=== PATIENT | male | born 1960 | race Caucasian/White ===

== ENCOUNTER → 2020-12-20 19:12 | Outpatient (CLI) | payer BC, SELFPAY ==
[2020-12-20 19:25] LABS: Basophils # 0.1 K/mm3 (0-0.2); Basophils % 1.1 % (0.1-2.0); Eosinophils # 0.4 K/mm3 (0.0-0.4); Hematocrit 49.3 % (42.0-52.0); Hemoglobin 16.1 g/dL (14.1-18.0); Mean Corpuscular HGB Conc 32.6 g/dL (31.8-35.4); Mean Corpuscular Hemoglobin 28.5 pg (27.0-31.2); Mean Corpuscular Volume 87.3 fl (80-94); Mean Platelet Volume 8.9 fl (7.4-10.4); Monocytes # 0.7 K/mm3 (0.1-1.0); Monocytes % 6.8 % (1.7-9.3); Platelet Count 373 K/mm3 (142-424); Red Blood Count 5.65 M/mm3 (4.60-6.20); Red Cell Distribution Width 14.1 % (11.5-17.5); White Blood Count 10.2 K/mm3 (4.8-10.8)
[2020-12-20 19:53] LABS: Alanine Aminotransferase 18 U/L (12-78); Albumin Level 4.6 g/dl (3.5-5.0); Albumin/Globulin Ratio 1.7 (1.1-1.8); Alkaline Phosphatase 66 U/L (38-126); Anion Gap 13.6 mEq/L (5-15); Aspartate Amino Transferase 22 U/L (17-59); Bilirubin,Total 0.6 mg/dl (0.2-1.3); Blood Urea Nitrogen 16 mg/dl (9-20); Carbon Dioxide 24 mmol/L (22.0-30.0); Chloride 108 mmol/L (98-107); Chol/HDL Ratio 6.8 (1-3.5); Cholesterol 217 mg/dl (140-200); Estimated Glomerular Filt Rate 87 ml/min (>60); GFR (African American) 105 ML/MIN (>60); Globulin 2.7 g/dL (1.3-3.2); Glucose 108 mg/dl (74-100); HDL Cholesterol 32 mg/dl (40-60); Potassium 4.6 mmoL/L (3.5-5.1); Sodium 141 mmol/L (136-145); Total Protein,Serum 7.3 g/dl (6.3-8.2); Triglycerides 185 mg/dl (30-150); VLDL Cholesterol 37 mg/dL (0-40)
[2020-12-20 20:04] LABS: Direct LDL Cholesterol 139.01 mg/dL (100-129)
== END ==
PROVIDERS: Visit Provider Internal Medicine Adolescent Medicine
DX: J44.9 Chronic obstructive pulmonary disease, unspecified (principal); E78.5 Hyperlipidemia, unspecified; K21.9 Gastro-esophageal reflux disease without esophagitis
CPT/HCPCS: 80053; 80061; 85025

== ENCOUNTER → 2020-12-21 08:47 | Outpatient (CLI) | payer BC, MEDICARE, SELFPAY ==
[2020-12-21 09:58] LABS: Coronavirus 19 IgG Antibody Positive (Negative); Coronavirus 19 IgM Antibody Negative (Negative)
== END ==
PROVIDERS: Visit Provider Internal Medicine Gastroenterology
DX: Z01.812 Encounter for preprocedural laboratory examination (principal); Z20.822 Contact with and (suspected) exposure to COVID-19; Z12.11 Encounter for screening for malignant neoplasm of colon
CPT/HCPCS: 36415; 86328

== ENCOUNTER 2020-12-23 07:38 | Day surgery (SDC) | payer BC, MEDICARE, SELFPAY ==
[2020-12-20 12:49] VITALS: BMI 30.7
[2020-12-23 08:32] VITALS: BP 133/82; PULSE 80; RESP 18; TEMP 36.3; O2SAT 100
[2020-12-23 08:55] VITALS: O2SAT 98
--- NOTE | 2020-12-23 08:58 | P.PN_ITS ---
[facility] Anesthesia Checklist - Structural Data Admitted From: Home Planned Operative Procedure/s: colonoscopy Consent for Planned Operative Procedure(s) Verified: Yes - Airway Assessment C-Spine Mobility Assessed: Yes TMJ Mobility Assessed: Yes Dentition: Good Dentition - Neurological Assessment Level of Consciousness: Awake, Alert, Appropriate - Anesthesia Plan Anesthesia Risk discussed: Yes Anesthesia Plan: Verified ASA Class: III Anesthesia Type: MAC [facility] History I have reviewed the patient's past medical history: Yes Medical History: Reports:: Cancer (kidney, skin) Denies:: Diabetes Mellitus Type 1, Diabetes Mellitus Type 2, Internal Pacemaker, MRSA, Seizures *Have you ever received a pneumonia vaccine?: Yes *Have you received a flu vaccine this season?: Yes Anesthesia experience/problems:: none Laterality Cases: Right: Carpal Tunnel Release Other Surgeries: No: Pacemaker Amputation: No Fractures: No - *Social History Last grade of school completed: High school graduate Smoking Status: Never smoker Alcohol Intake: never Substance Use Type: denies use *Occupational Status:: disabled Housing: house Household Members: spouse *Travel in the last 8 weeks: None Family Hx:: Cancer, Diabetes
[2020-12-23 09:30] VITALS: BP 98/59; PULSE 58; RESP 18; TEMP 36.4; O2SAT 95
--- NOTE | 2020-12-23 09:30 | HMH.PROC ---
[facility] Procedure Note Procedure Note:: Colonoscopy Procedure Report: Colonoscopy with cold snare polypectomy Endoscopist: Sandeep Laughlin II, MD Referring physician: Cristi Andersen M.D. Date of Procedure: December 23, 2020 Equipment: Olympus 190 variable stiffness pediatric colonoscope Sedation: MAC sedation Indication: Mr. Mack is a 60-year-old gentleman who is here for screening colonoscopy. His son had colon cancer recently at the age of 35. The patient reports no abdominal pain, weight loss, change in his bowel habits or rectal bleeding. Procedure: Prior to the procedure, a history and physical exam was performed, and patient's medications and allergies were reviewed. The risks, benefits and alternatives of the sedation and procedure were discussed with the patient. All questions were answered and informed consent was obtained. The patient was brought to the procedure room. Patient identification and proposed procedure were verified by the physician and the nurse. The patient was placed in a left lateral decubitus position and the scope was passed under direct vision. Throughout the procedure, the patient's blood pressure, pulse, and oxygen saturations were monitored continuously. The colonoscopy was accomplished without difficulty. The patient tolerated the procedure well. Findings: On digital rectal examination there was normal rectal tone. There were no external hemorrhoids. There was a prostate nodule in the right upper margin of the prostate and there was firmness in the left upper margin with asymmetry. The colonoscope was introduced through the anal canal to the rectum and advanced to the cecum. The ileocecal valve and appendiceal orifice were identified. The scope was advanced a short distance into the ileum which appeared grossly normal. The scope was then withdrawn into the colon. There were a total of 10 colon polyps (cecum/ascending x5 (3, 4, 5, 7 and 10 mm), transverse x3 (4, 4 and 8 mm) and ascending x2 (5 and 6 mm)) which were all removed via cold snare polypectomy. The cecum, ascending and transverse colon and mucosa were grossly normal. There were scattered diverticuli throughout the descending and sigmoid colon (LEFT colon). The rectum itself was normal. Upon retroflexion within the rectum there were grade 1-2 internal hemorrhoids. The preparation was fair to good throughout with Huntington Preparation Score of 7 out of 9. The cecal time was 17 minutes. Impression: 1. Colonic polyps x10 2. Left-sided diverticulosis 3. Grade 1-2 internal hemorrhoids 4. Prostate nodule/prostate asymmetry Plan: I will follow up the polyp pathology and recommend repeat colonoscopy again in 1-2 years based upon the polyp size, number and histology. I would also recommend this based upon bowel preparation and family history. Additionally, I will do PSA testing today and make referral to urology I would encourage fiber supplementation on a long-term daily maintenance basis.
[2020-12-23 09:40] VITALS: BP 103/72; PULSE 61; RESP 18; TEMP 36.6; O2SAT 96
[2020-12-23 09:50] VITALS: BP 131/97; PULSE 61; RESP 18; O2SAT 96
[2020-12-23 10:00] VITALS: BP 131/94; PULSE 68; RESP 18; TEMP 36.1; O2SAT 97
[2020-12-23 10:42] LABS: Prostate Specific Ag, Diagnost 0.973 ng/ml (0.0-4.0)
== END 2020-12-23 10:00 | disposition home or self-care (01) ==
LOC: OUTP 07:41
PROVIDERS: PCP Internal Medicine Adolescent Medicine; Visit Provider Internal Medicine Gastroenterology
PROC: 0DJD8ZZ Inspection of Lower Intestinal Tract, Via Natural or Artificial Opening Endoscopic (ICD-10-PCS; CPT 45378; principal; 2020-12-23 09:00)
DX: Z12.11 Encounter for screening for malignant neoplasm of colon (principal); K63.5 Polyp of colon; K57.30 Diverticulosis of large intestine without perforation or abscess without bleeding; K64.0 First degree hemorrhoids; N40.2 Nodular prostate without lower urinary tract symptoms; Z85.828 Personal history of other malignant neoplasm of skin; Z85.528 Personal history of other malignant neoplasm of kidney; Z83.3 Family history of diabetes mellitus
CPT/HCPCS: 45385; 36415; 84153

== ENCOUNTER → 2021-07-24 14:45 | Outpatient (CLI) | payer BC, MEDICARE, SELFPAY ==
[2021-07-24 17:10] LABS: Prostate Specific Ag Screen 1.2 ng/ml (0.0-4.0)
== END ==
PROVIDERS: Visit Provider Urology
DX: Z12.5 Encounter for screening for malignant neoplasm of prostate (principal)
CPT/HCPCS: 36415; G0103

== ENCOUNTER → 2021-11-28 08:30 | Outpatient (POV) | payer BC, MEDICARE, SELFPAY | PROVIDERS: Visit Provider Dermatology | DX: Z00.00 Encounter for general adult medical examination without abnormal findings (principal) ==

== ENCOUNTER → 2021-12-11 09:13 | Outpatient (CLI) | payer BC, MEDICARE, SELFPAY ==
--- NOTE | 2021-12-11 09:23 | XR_ITS ---
FINAL REPORT CLINICAL HISTORY: NECK PAIN FINDINGS: CERVICAL SPINE Multiple views were obtained. There is no acute fracture. There is no malalignment. There is moderate disc space narrowing at C5-6. There is mild anterior posterior osteophyte formation. The patient is edentulous. There is mild vascular calcification of the carotid bifurcations. IMPRESSION: Moderate degenerative disc disease at C5-6. Reviewed, Interpreted and Dictated by Pipe Shelton MD Transcribed by All Forbes Authenticated by Pipe Shelton MD on 12/11/2021 04:32:[address] [facility]
== END ==
PROVIDERS: PCP Internal Medicine Adolescent Medicine; Visit Provider Internal Medicine Adolescent Medicine
DX: M54.2 Cervicalgia (principal)
CPT/HCPCS: 72050

== ENCOUNTER → 2022-01-22 14:31 | Outpatient (CLI) | payer BC, MEDICARE, SELFPAY ==
--- NOTE | 2022-01-22 14:36 | XR_ITS ---
FINAL REPORT CLINICAL HISTORY: renal cell cancer FINDINGS: Two views of the chest were obtained. The heart size and pulmonary vascularity are within normal limits. The mediastinum is normal. No acute pulmonary abnormality is identified. There is no pneumothorax. The bony thorax is intact. IMPRESSION: No active cardiopulmonary disease. Reviewed, Interpreted and Dictated by Jai Rojo III, MD Transcribed by Luli Gray Authenticated and [facility]
[2022-01-22 16:57] LABS: Alanine Aminotransferase 27 U/L (12-78); Albumin Level 4.3 g/dl (3.5-5.0); Albumin/Globulin Ratio 1.6 (1.1-1.8); Alkaline Phosphatase 64 U/L (38-126); Anion Gap 10.5 mEq/L (5-15); Aspartate Amino Transferase 25 U/L (17-59); Blood Urea Nitrogen 16 mg/dl (9-20); Calcium 9.5 mg/dl (8.4-10.2); Carbon Dioxide 27 mmol/L (22.0-30.0); Chloride 106 mmol/L (98-107); Estimated Glomerular Filt Rate 86 ml/min (>60); GFR (African American) 105 ML/MIN (>60); Globulin 2.7 g/dL (1.3-3.2); Glucose 76 mg/dl (74-100); Potassium 4.5 mmoL/L (3.5-5.1); Sodium 139 mmol/L (136-145)
[2022-01-22 16:58] LABS: Bilirubin,Total < 0.1 mg/dl (0.2-1.3)
== END ==
PROVIDERS: PCP Internal Medicine Adolescent Medicine; Visit Provider Urology
DX: C64.9 Malignant neoplasm of unspecified kidney, except renal pelvis (principal)
CPT/HCPCS: 36415; 71046; 80053

== ENCOUNTER → 2022-02-09 09:27 | Outpatient (CLI) | payer BC, MEDICARE, SELFPAY ==
--- NOTE | 2022-02-09 09:33 | MR_ITS ---
FINAL REPORT CLINICAL HISTORY: LUMBAR NEURALGIA, SPINAL STENOSIS OF LUMBAR REGION. History kidney cancer 2010. history of 2 lumbar surgeries in 2010. right sided low back pain. right leg pain.20ml prohance given. FINDINGS: Multiplanar MR imaging of the lumbar spine was performed without and with contrast. On the sagittal T2-weighted images, abnormal decreased signal is seen at multiple levels. There is mild retrolisthesis of L2 on L3 and L5 on S1. Endplate changes are seen at several levels, greatest at L5-S1. There is a hemangioma in the L1 vertebral body. There is no evidence of fracture. The conus is seen at approximately the L1 level and has an unremarkable appearance. The left kidney is surgically absent. T11-12: Annular disc bulge with osteophytes. There is mild left neural foraminal narrowing. T12-L1: Annular disc bulge with osteophytes. There is mild left neural foraminal narrowing. L1-2: There is an annular disc bulge with facet arthropathy. There is a small left paracentral disc protrusion. There is mild right neural foraminal narrowing. L2-3: There is an annular disc bulge with facet arthropathy and vertebral osteophytes. There is a small central disc protrusion and moderate bilateral neural foraminal narrowing. L3-4: Postoperative changes of L3 laminectomies and fusion. There are osteophytes and moderate bilateral neural foraminal narrowing. L4-5: There is an annular disc bulge with facet arthropathy and vertebral osteophytes. There is severe right and moderate left neural foraminal narrowing. L5-S1: There is an annular disc bulge with facet arthropathy and vertebral osteophytes. There is severe right and moderate left neural foraminal narrowing. No abnormal contrast enhancement is identified. IMPRESSION: Multilevel degenerative disc disease with severe right neural foraminal narrowing at L4-5 and L5-S1. Postoperative changes of laminectomy and left nephrectomy. Reviewed, Interpreted and Dictated by Jai Rojo III, MD Transcribed by Aubree Guadalupe Authenticated and [facility]
== END ==
PROVIDERS: PCP Internal Medicine Adolescent Medicine; Visit Provider Internal Medicine Adolescent Medicine
DX: M54.16 Radiculopathy, lumbar region (principal); M48.061 Spinal stenosis, lumbar region without neurogenic claudication; M53.86 Other specified dorsopathies, lumbar region
CPT/HCPCS: 72158; 76376; A9576

== ENCOUNTER 2022-04-09 09:00 | Outpatient (RCR) | payer BC, MEDICARE, SELFPAY | END 2022-05-10 14:26 | disposition home or self-care (01) | LOC: PT.CARL 09:00 | PROVIDERS: PCP Internal Medicine Adolescent Medicine; Visit Provider Neurological Surgery | DX: M54.2 Cervicalgia (principal); M48.062 Spinal stenosis, lumbar region with neurogenic claudication; Z98.1 Arthrodesis status | CPT/HCPCS: 97110; 97140; 97163; 97164 ==

== ENCOUNTER → 2022-07-25 10:45 | Outpatient (CLI) | payer BC, MEDICARE, SELFPAY ==
--- NOTE | 2022-07-25 10:51 | XR_ITS ---
FINAL REPORT CLINICAL HISTORY: ACUTE PAIN DUE TO TRAUMA, FELL YESTERDAY FINDINGS: SACRUM/COCCYX 3 views were obtained. There is no definite acute fracture. There is severe degenerative change in the lower lumbar spine. There is angulation at the sacrococcygeal junction, favor congenital or chronic. There is no soft tissue abnormality. IMPRESSION: No definite acute fracture. Reviewed, Interpreted and Dictated by Jai Rojo III, MD Transcribed by Luli Gray Authenticated and [facility]
== END ==
PROVIDERS: PCP Nurse Practitioner Family; Visit Provider Nurse Practitioner Family
DX: G89.11 Acute pain due to trauma (principal); M53.3 Sacrococcygeal disorders, not elsewhere classified; Z98.1 Arthrodesis status
CPT/HCPCS: 72220

== ENCOUNTER 2022-12-06 08:32 | Day surgery (SDC) | payer BC, MEDICARE, SELFPAY ==
[2022-12-03 14:04] VITALS: BMI 31.8
[2022-12-06] VITALS (7 sets, daily range): BP systolic 92–128; BP diastolic 52–81; PULSE 50–65; RESP 14–18; TEMP 36.3–36.5; O2SAT 94–98
--- NOTE | 2022-12-06 09:41 | EXP.ANES.CKL ---
[facility] Disclaimer: The information contained in this section may have been updated after the patient was seen, as this information can be updated by other users. Medical History History of gastroesophageal reflux (GERD) Hyperlipidemia Hypertension Surgical History No significant past surgical history Family History Other No significant family history Social History Smoking Status: Former smoker second hand exposure: No alcohol intake: current substance use type: denies use current occupational status: retired and disabled Travel in the last 8 weeks: None household members: spouse and family housing: house lives independently: No marital status: current occupational exposures/hazards: No caffeine: Yes special zeynep needs: No agree to transfusion: No do you feel safe at home: Yes victim of physical abuse: No victim of emotional abuse: No victim of sexual abuse: No would you like helpful sources: No [facility] Anesthesia Checklist Patient Identification Patient Identification: Arm Band and Verbal (Name & ) Structural Data Admitted From: Home Planned Operative Procedure/s: Colonoscopy Consent for Planned Operative Procedure(s) Verified: Yes NPO Status Verified Time NPO: 00:00 Airway Assessment C-Spine Mobility Assessed: Yes TMJ Mobility Assessed: Yes Dentition: Good Dentition Neurological Assessment Level of Consciousness: Awake Hx Seizures: No Numbness or tingling in extremities: No Anesthesia Plan Anesthesia Risk discussed: Yes Anesthesia Plan: Verified ASA Class: III Anesthesia Type: MAC
--- NOTE | 2022-12-06 10:05 | HMH.SCOPE ---
Procedure: Date: 12/06/22 Patient Date of :: 1960 Procedure Performed:: Screening colonoscopy Indications:: Personal history of polyps Performing Provider:: Wesly Lobo MD Referring Provider:: Heather Mason APRN Sedation:: Propofol Procedure:: After placing the patient in the left lateral decubitus position, the colonoscopy was gently inserted into the rectum and under direct visualization advanced to the cecum which was identified by transillumination in the right lower quadrant, identification of the ileocecal valve, appendiceal orifice, and cecal strap. Color, texture, mucosa, and anatomy of the colon were carefully examined with the scope. Findings:: Anal canal: normal Rectum: normal Sigmoid colon: normal without polyps or inflammatory changes, scattered diverticulosis Descending colon: normal without polyps or inflammatory changes Splenic flexure: normal Transverse colon: normal without polyps or inflammatory changes Hepatic flexure: normal Ascending colon: normal without polyps or inflammatory changes Cecum: normal Terminal ileum: not visualized Impression: Normal colonoscopy with scattered sigmoid diverticulosis Recommendations:: Follow up examination in about FIVE years or so, sooner if clinically indicated. Complications:: None Estimated blood obtained (mL): 0
== END 2022-12-06 10:47 | disposition home or self-care (01) ==
PROVIDERS: PCP Nurse Practitioner Family; Visit Provider Internal Medicine Gastroenterology
PROC: 0DJD8ZZ Inspection of Lower Intestinal Tract, Via Natural or Artificial Opening Endoscopic (ICD-10-PCS; CPT 45378; principal; 2022-12-06 10:00)
DX: Z12.11 Encounter for screening for malignant neoplasm of colon (principal); K57.30 Diverticulosis of large intestine without perforation or abscess without bleeding; Z79.899 Other long term (current) drug therapy
CPT/HCPCS: 45378

== ENCOUNTER → 2022-12-07 12:43 | Outpatient (CLI) | payer BC, MEDICARE, SELFPAY ==
--- NOTE | 2022-12-07 12:46 | XR_ITS ---
FINAL REPORT CLINICAL HISTORY: RENAL CELL CARCINOMA in 2010, follow up COMPARISON: 01/22/2022 FINDINGS: Two views of the chest were obtained. The heart size and pulmonary vascularity are within normal limits. The mediastinum is normal. No acute pulmonary abnormality is identified. There is no pneumothorax. There are moderate degenerative changes in the thoracic spine. IMPRESSION: No active cardiopulmonary disease. Reviewed, Interpreted and Dictated by Jai Rojo III, MD Transcribed by Luli Gray Authenticated and . [facility]
== END ==
PROVIDERS: PCP Nurse Practitioner Family; Visit Provider Urology
DX: C64.9 Malignant neoplasm of unspecified kidney, except renal pelvis (principal)
CPT/HCPCS: 71046

== ENCOUNTER → 2023-06-21 09:21 | Outpatient (CLI) | payer BC, MEDICARE, SELFPAY ==
--- NOTE | 2023-06-21 09:56 | CT_ITS ---
FINAL REPORT TECHNIQUE: Pre and postcontrast axial imaging of the abdomen was obtained. Reformatted images were also obtained and reviewed. This study was performed with techniques to keep radiation doses as low as reasonably achievable (ALARA). Individualized dose reduction techniques using automated exposure control or adjustment of mA and/or kV according to the patient's size were employed. CLINICAL HISTORY: INCISIONAL HERNIA near the belly button. patient had kidney removed 12 years ago. FINDINGS: Lung bases are clear. There is mild fatty infiltration of the liver. Patient is status post left nephrectomy. Gallbladder surgically absent. Remaining solid abdominal organs are without acute abnormality. There are supraumbilical midline ventral hernias containing fat. More superior hernia measures 47 mm in transverse dimension, inferior hernia measures 84 mm in transverse dimension. There is no evidence of bowel obstruction. The appendix is normal. There is no adenopathy or free fluid. IMPRESSION: Supraumbilical ventral hernias containing fat. Reviewed, Interpreted and Dictated by Jai Rojo III, MD Transcribed by Aubree Guadalupe Authenticated and [facility]
[2023-06-21 10:10] LABS: Blood Urea Nitrogen 13 mg/dl (9-20); Estimated Glomerular Filt Rate 98 ml/min (>60); GFR (African American) 119 ML/MIN (>60)
== END ==
PROVIDERS: PCP Nurse Practitioner Family; Visit Provider Nurse Practitioner Family
DX: K43.2 Incisional hernia without obstruction or gangrene (principal)
CPT/HCPCS: 36415; 74170; 82565; 84520; Q9967

== ENCOUNTER 2023-09-17 08:53 | Outpatient (CLI) | payer BC, MEDICARE, SELFPAY ==
[2023-09-17 09:26] LABS: Basophils # 0.2 K/mm3 (0-0.2); Basophils % 1.6 % (0.1-2.0); Eosinophils # 0.3 K/mm3 (0.0-0.4); Eosinophils % 3.2 % (0.1-12.0); Hematocrit 48.1 % (42.0-52.0); Hemoglobin 16.4 g/dL (14.1-18.0); Lymphocytes # 2.3 K/mm3 (0.7-4.5); Lymphocytes % 24.1 % (10-50); Mean Corpuscular Hemoglobin 29.9 pg (27.0-31.2); Mean Corpuscular Volume 87.9 fl (80-94); Mean Platelet Volume 7.6 fl (7.4-10.4); Monocytes # 0.7 K/mm3 (0.1-1.0); Neutrophils # 6.1 K/mm3 (1.8-7.8); Platelet Count 354 K/mm3 (142-424); Red Blood Count 5.47 M/mm3 (4.60-6.20); Red Cell Distribution Width 13.6 % (11.5-17.5); White Blood Count 9.6 K/mm3 (4.8-10.8)
[2023-09-17 09:50] LABS: Chloride 105 mmol/L (98-107)
[2023-09-17 09:51] LABS: Potassium 4.5 mmoL/L (3.5-5.1); Sodium 139 mmol/L (136-145)
[2023-09-17 09:53] LABS: Alanine Aminotransferase 27 U/L (12-78); Albumin Level 4.3 g/dl (3.5-5.0); Alkaline Phosphatase 66 U/L (38-126); Anion Gap 11.5 mEq/L (5-15); Aspartate Amino Transferase 27 U/L (17-59); Bilirubin,Direct 0.2 mg/dl (0.0-0.4); Bilirubin,Indirect 0.4 mg/dL (0.0-0.9); Bilirubin,Total 0.6 mg/dl (0.2-1.3); Bilirubin,Unconjugated 0.4 mg/dL (0.0-1.1); Blood Urea Nitrogen 15 mg/dl (9-20); Calcium 9.3 mg/dl (8.4-10.2); Carbon Dioxide 27 mmol/L (22.0-30.0); Cholesterol 163 mg/dl (140-200); Estimated Glomerular Filt Rate 86 ml/min (>60); GFR (African American) 104 ML/MIN (>60); Glucose 101 mg/dl (74-100); Triglycerides 173 mg/dl (30-150); VLDL Cholesterol 35 mg/dL (0-40)
[2023-09-17 09:54] LABS: HDL Cholesterol 27 mg/dl (40-60)
[2023-09-17 10:05] LABS: Direct LDL Cholesterol 98.19 mg/dL (100-129)
[2023-09-17 10:10] LABS: Free T4 (Free Thyroxine) 1.09 ng/dl (0.78-2.19)
[2023-09-17 10:25] LABS: Thyroid Stimulating Hormone 0.65 uIU/mL (0.465-4.68)
== END 2023-09-17 23:59 ==
LOC: LAB 08:55
PROVIDERS: PCP Nurse Practitioner Family; Visit Provider Internal Medicine
DX: Z01.810 Encounter for preprocedural cardiovascular examination (principal); R06.00 Dyspnea, unspecified; R94.31 Abnormal electrocardiogram [ECG] [EKG]; E11.9 Type 2 diabetes mellitus without complications; E78.5 Hyperlipidemia, unspecified; I10 Essential (primary) hypertension; Z85.528 Personal history of other malignant neoplasm of kidney; Z87.19 Personal history of other diseases of the digestive system; Z87.891 Personal history of nicotine dependence; Z90.5 Acquired absence of kidney
CPT/HCPCS: 36415; 80048; 80061; 80076; 83735; 84439; 84443; 85025

== ENCOUNTER 2023-10-01 07:53 | Outpatient (CLI) | payer BC, MEDICARE, SELFPAY ==
--- NOTE | 2023-10-01 07:53 | NM_ITS ---
APPROVED REPORT Exam: Nuclear Stress Test Indication: SOB, High cholesterol, Family history, CHF Patient Location: Outpatient Stress Tech: Court Tomlin NM Tech:Emani Tran, ARRT, RT (R)(N) Ht: 5 ft 11 in Wt: 225 lbs HR: 52 bpm BP: 155/87 mmHg BSA: 2.22 m2 Rhythm: NSR TID: 1.11 BMI: 31.3 History: SOB, High cholesterol, Family history, CHF Procedure: Patient received 0.4 mg of intravenous Lexiscan, resting heart rate 52 bpm, resting blood pressure 155/87 mmHg, with Lexiscan maximum heart rate achieved was 102 bpm which is % of the maximum predicted heart rate and blood pressure was 176/91 mmHg. With Lexiscan, patient denied any complaint of chest pain. Cardiac Stress and Resting SPECT Images: Cardiac Stress and Resting SPECT images were obtained using technetium 99m Myoview 32.1 mCi stress and 10.24 mCi at rest. Resting and stress imaging and supine positions demonstrate a medium sized, moderate, tapered fixed perfusion defect in the inferior LV wall. This is no longer visualized with prone stress imaging. Findings are suggestive of diaphragmatic attenuation. Gated imaging demonstrates normal global and regional LV systolic function. LVEF is calculated at 55%. Conclusion: Diaphragmatic attenuation is present. No definite evidence of fixed or reversible perfusion defects. Gated imaging demonstrates normal global and regional LV systolic function. LVEF is calculated at 55%. Electronically signed by : Kaykay Mayen MD 10/02/2023 11:00:38
--- NOTE | 2023-10-01 08:10 | CA_ITS ---
APPROVED REPORT EXAM: Comprehensive 2D, Doppler, and color-flow Echocardiogram Forming Process Line Worker: Tatianna Marcelo RVT Ht: 5 ft 11 in Wt: 229lbs BSA: 2.23 BP: 119/69 mmHg Indications: PRE-OP,ABN EKG,DM,EX SMOKER,CHF,GERD,HX RENAL CELL CA 2D Dimensions LA Volume 48.20 mL LA Volume Index 21.52 mL/m2 (M/F) 16-34 M-Mode Dimensions RVDd 2.54 cm (0.9-2.6) LA Diam 3.77 cm (1.9-4.0) LVDd 6.02 cm (3.5-5.7) LVDs 4.19 cm (3.5-5.7) IVSd 0.80 cm (0.6-1.1) PWd 0.85 cm (0.6-1.1) EF (Teich) 56.90% FS 30.40% EDV (Teich) 181.40 mL TAPSE 2.94 (<1.7) ESV (Teich) 78.10 mL LV Diastology E Decel Time 230 (160-240 msec) E/A Ratio 1.5 Aortic Valve LIZETH Index 1.46 cm2/m2 AoV Peak Dieudonne. 160.0 (50-130 cm/s) AO Peak GR. 10.20 mmHg AO Mean GR. 5.40 (<5 mmHg) AO VTI 31.9 (18-25 cm) LIZETH (VTI) 3.35 (2.5-4.5 cm2) Mitral Valve MV E Max Dieudonne. 87.0 (40-130 cm/s) MV A Velocity 60.0 (40-130 cm/s) E/A Ratio 1.45 MV PHT 67.0 ms Pulmonary Valve PV Peak Velocity 90.0 (50-150 cm/s) Tricuspid Valve TR P. Velocity 278.00 cm/s Left Ventricle The left ventricle is normal size. The left ventricular systolic function is low normal. There is normal left ventricular wall thickness. There is normal LV segmental wall motion. The left ventricular diastolic function is normal. LVEF is 50%. Right Ventricle Right ventricle is mildly dilated. The right ventricular systolic function is normal. Atria The left atrium size is normal. The right atrium size is normal. There is no Doppler evidence of interatrial shunt. Aortic Valve The aortic valve is normal in structure. There is no aortic valvular stenosis. No aortic regurgitation is present. Mitral Valve The mitral valve is normal in structure. No evidence of mitral valve stenosis. There is no mitral valve regurgitation noted. Tricuspid Valve The tricuspid valve leaflets are thin and pliable. Trace tricuspid regurgitation. There is insufficient TR jet to estimate RVSP. Pulmonic Valve The pulmonary valve is normal in structure. Trace pulmonic regurgitation. Great Vessels The aortic root is normal in size. The ascending aorta is normal in size. IVC is normal in size and collapses >50% with inspiration. Pericardium There is no pericardial effusion. Other Information Study Quality: Fair Conclusion Low normal LV systolic function. Mild RV dilation with normal RV function. No significant valvular stenosis or regurgitation. Electronically signed by : Kaykay Mayen MD 10/02/2023 12:09:33
--- NOTE | 2023-10-01 09:24 | CA_ITS ---
APPROVED REPORT Exam: Pharmacologic Technologist: Court Tomlin Ht: 5 ft 11 in Wt: 229 lbs BSA: 2.23 m2 HR: 50 bpm BP: 155/87 mmHg Rhythm: NSR Indications: Dyspnea Medical History Medications: Omeprazole,,,,, Aspirin,,,,, Losartan,,,,, Atorvastatin,,,,, Carvedilol,,,,, SyMBICORT,,,,, FeNOfibrate,,,,, Potassium,,,,, Furosemide,,,,, ICOSAPENT ethyl,,,,, Stress Test Details Test: LEXISCAN HR Resting HR: 52 bpm Max Heart Rate (APMHR): 159 bpm Max HR Achieved: 102 bpm Target HR (85% APMHR): 135 bpm % of APMHR: 64 Recovery HR: 70 bpm BP Resting BP: 155.0/87.0 mmHg Max BP: 176.0/91.0 mmHg Recovery BP: 153.0/82.0 mmHg ECG Resting ECG: Sinus bradycardia Stress ECG: No significant ST changes Arrhythmia: PVCs Clinical Exercise duration: 04:04 min Highest Stage Achieved: Stress ECG Conclusion Symptoms: Dyspnea, nausea Arrhythmias/Ectopy: PVCs ST-T Changes: No significant ST changes Conclusion: EKG portion unremarkable due to Lexiscan infusion. Myoview images reported separately. Test Summary REST . . . . . . . Resting REST 02:47 . . 52 . 155/ 87 . . Stage 1 . . . . . . . Myoview Injected Stage 1 01:00 . . 93 . . . . Stage 2 01:00 . . 96 . . . . Stage 3 01:00 . . 88 . 176/ 91 . . Stage 4 01:00 . . 79 . . . . Stage 4 01:04 . . 78 . . . Stop exercise at 04:04 RECOVERY 01:00 . . 76 . 156/ 86 . . RECOVERY 02:00 . . 71 . 156/ 86 . . RECOVERY 03:00 . . 76 . 146/ 90 . . RECOVERY 03:43 . . 63 . 153/ 82 . . Electronically signed by : Kaykay Mayen MD 10/02/2023 10:59:00
[2023-10-01] MEDS: REGADENOSON 0.4MG/5ML SYRINGE 0.400000000000000022 MG IV (09:34)
[2023-10-01] MEDS: SODIUM CHLORIDE 0.9% 10ML SYR (RAD ONLY) 10 ML IV ×2 (09:34)
[2023-10-01] MEDS: ISOTOPE MYOVIEW (PER STUDY) 1 DOSE IV (09:34)
== END 2023-10-01 23:59 ==
LOC: RAD 07:53
PROVIDERS: PCP Nurse Practitioner Family; Visit Provider Internal Medicine
DX: Z01.810 Encounter for preprocedural cardiovascular examination (principal); R06.00 Dyspnea, unspecified; R94.31 Abnormal electrocardiogram [ECG] [EKG]; I10 Essential (primary) hypertension; E11.9 Type 2 diabetes mellitus without complications; E78.5 Hyperlipidemia, unspecified; I50.9 Heart failure, unspecified; Z85.528 Personal history of other malignant neoplasm of kidney; Z87.19 Personal history of other diseases of the digestive system; Z87.891 Personal history of nicotine dependence; Z90.5 Acquired absence of kidney; Z79.899 Other long term (current) drug therapy
CPT/HCPCS: 78452; 93017; 93018; 93306; A9502; J2785

== ENCOUNTER 2024-12-03 07:36 | Outpatient (CLI) | payer BC, MEDICARE, SELFPAY ==
--- NOTE | 2024-12-03 07:38 | CT_ITS ---
FINAL REPORT TECHNIQUE: Thin section axial images were obtained from the lung apices to the upper abdomen by computed tomography. Reformatted images were obtained and reviewed. This study was performed with techniques to keep radiation doses al low as reasonably achievable (ALARA). Individualized dose reduction techniques using automated exposure control or adjustment of mA and/or kV according to the patient's size were employed. CLINICAL HISTORY: HX OF TOBACCO, former smoker (quit 10 yrs ago), smoked 3 packs per day x 30 yrs. copd. kidney cancer. COMPARISON: None FINDINGS: CHEST CT LOW DOSE 64-year-old male, former smoker who quit 10 years ago, 94-verr-kgsw history. CTDI vol (mGy): 2.90 DLP (mGy-cm): 103.94 There is no axillary adenopathy. There is no mediastinal or hilar mass or adenopathy. The heart is normal in size. Mild coronary artery calcifications are identified. There is no pericardial or pleural effusion. Lung window images demonstrate mild diffuse interstitial opacities, that may represent mild chronic fibrosis. There is an anterior left lower lobe nodule, which measures 4 mm in size, best seen on image #40 of series 4. Limited images of the upper abdomen demonstrate diffuse fatty infiltration of the liver. IMPRESSION: Lung-RADS category 2. Recommend 12 month follow up low dose chest CT. Reviewed, Interpreted and Dictated by Pipe Shelton MD Transcribed by Orin Abdi Authenticated and [facility]
== END 2024-12-03 23:59 | disposition home or self-care (01) ==
LOC: RAD 07:37
PROVIDERS: PCP Nurse Practitioner Family; Visit Provider Nurse Practitioner Family
DX: Z12.2 Encounter for screening for malignant neoplasm of respiratory organs (principal); Z87.891 Personal history of nicotine dependence; R91.1 Solitary pulmonary nodule; J84.9 Interstitial pulmonary disease, unspecified
CPT/HCPCS: 71271